=== PATIENT | male | born 1995 | race Caucasian/White ===

== ENCOUNTER → 2017-04-26 | Outpatient (CLI) | payer BC ==
--- NOTE | 2017-04-26 07:36 | DIAGNOSTIC IMAGING REPORT ---
(TESTICULAR) SCROTUM-CONT CLINICAL HISTORY: 21 years-old Male with R36.9 Penile discharge. Symptoms are acute in nature COMPARISON STUDY: None available TECHNIQUE: Real-time, grayscale, and color Doppler sonography of the testes and scrotum is performed. Images are reviewed in the transverse and longitudinal planes. FINDINGS: RIGHT HEMISCROTUM: The right testis measures 4.8 x 1.7 x 2.7 cm and the parenchyma appears unremarkable. No intratesticular mass is seen. Normal-appearing arterial inflow is present within the right testicle. Subcentimeter right epididymal head cysts are seen, largest of which measures 4 mm. No varicocele or hydrocele is identified. LEFT HEMISCROTUM: The left testis measures 5.0 x 2.1 x 2.4 cm. There are two small intratesticular cysts seen, largest of which measures 3 mm within the mid testicle superficially. No intratesticular mass is seen. Normal-appearing arterial inflow is present within the left testicle. The left epididymal head appears normal. No varicocele or hydrocele is identified. IMPRESSION: 1. No evidence of testicular torsion. 2. Two small subcentimeter intratesticular cysts are seen in the left, largest of which measures 3 mm. No suspicious testicular mass lesions identified. 3. Subcentimeter right epididymal head cysts, largest of which measures up to 4 mm. The above report was generated using voice recognition software. It may contain grammatical, syntax or spelling errors. Electronically signed by: Hemanth Penny M.D. 04/26/2017 7:35 AM Dictated Date/Time: 04/26/2017 7:30 AM
== END | disposition home or self-care (01) ==
LOC: C.ULTR 07:06
PROVIDERS: ATTEND Urology
DX: R36.9 Urethral discharge, unspecified (principal); N44.2 Benign cyst of testis; N50.3 Cyst of epididymis